=== PATIENT | female | born 1950 | race Caucasian/White ===

== ENCOUNTER 2016-11-27 10:47 | Inpatient (IN) | payer MEDICARE, OTHER ==
[2016-11-22 14:45] LABS: BASOPHILS 0.5 %; BASOPHILS ABSOLUTE 0.04 10/3/uL (0.0-0.16); EOSINOPHILS 2.4 %; EOSINOPHILS ABSOLUTE 0.21 10/3/uL (0.0-0.53); HEMATOCRIT 39.1 % (36.0-48.0); HEMOGLOBIN 12.9 g/dL (12.0-16.0); IMMATURE GRANULOCYTES 0.3 %; IMMATURE GRANULOCYTES ABSOLUTE 0.03 10/3/uL (0.0-0.11); LYMPHOCYTES 25.9 %; LYMPHOCYTES ABSOLUTE 2.26 10/3/uL (0.67-4.30); MEAN CORPUSCULAR HEMOGLOB 29.6 pg (26.0-34.0); MEAN CORPUSCULAR VOLUME 89.7 fL (80-100); MEAN PLATELET VOLUME 10.1 fL (9.2-13.0); MONOCYTES 9.3 %; MONOCYTES ABSOLUTE 0.81 10/3/uL (0.21-1.20); NEUTROPHILS 61.6 %; NEUTROPHILS ABSOLUTE 5.37 10/3/uL (2.02-8.40); PLATELET COUNT 304 10/3/uL (150-400); RBC DISTRIBUTION WIDTH 13.4 % (12.0-16.0); RED CELL COUNT 4.36 10/6/uL (4.0-5.6); WHITE BLOOD CELLS 8.7 10/3/uL (4.5-10.5)
[2016-11-22 14:46] LABS: MANUAL DIFF NO %
[2016-11-22 14:49] LABS: PARTIAL THROMBO TIME 28.4 SEC (22.5-37.2); PROTIME (NOT ORD) 13.1 SEC (12.0-14.5)
[2016-11-22 14:57] LABS: A/G RATIO 1.1 (0.7-1.9); ALBUMIN 3.9 G/DL (3.5-5.0); ALKALINE PHOSPHATASE 87 U/L (45-117); BUN (BLOOD UREA NITROGEN) 20 MG/DL (6-23); CALCIUM, SERUM 8.9 MG/DL (8.5-10.4); CHLORIDE, SERUM 104 MMOL/L (96-112); CO2 (CARBON DIOXIDE) 29 MMOL/L (24-34); CREATININE 0.76 MG/DL (0.55-1.02); GFR AFRICAN AMERICAN 95 ML/MIN (>=60); GFR NON AFRICAN AMERICAN 82 ML/MIN (>=60); GLOBULIN 3.6 G/DL (2.5-4.1); GLUCOSE, SERUM 96 MG/DL (60-99); POTASSIUM, SERUM 3.2 MMOL/L (3.5-5.3); SGOT(AST) 26 U/L (5-40); SGPT(ALT) 26 U/L (5-65); SODIUM, SERUM 143 MMOL/L (135-148); TOTAL BILIRUBIN 1.7 MG/DL (0-1.2); TOTAL PROTEIN 7.5 G/DL (6.0-8.5)
[2016-11-22 16:37] LABS: ASCORBIC ACID (UR NOT ORDER) 40 (NEG); BILIRUBIN, URINE NEGATIVE (NEG); KETONE, URINE NEGATIVE (NEG); LEUKOCYTE ESTERASE(NOT OR SMALL (NEG); WBC (NOT ORDERED) (RFLEX) 48 (0-5)
--- NOTE | ~2016-11-27 | HP ---
History And Physical [id number] [place]. [address] NAME: ELAN RUTH : 52 STATUS : ADM IN [facility]#: [id number] AGE: 66 ADM/REG DATE : 11/27/16 MR#: [id number] REPORT SERV DATE: 11/27/16 DICTATED BY: JOEY LIMON III DATE: 11/27/16 REPORT STATUS : Draft TRANSCRIBED BY: MODLuis DATE: 11/27/16 DATE OF ADMISSION: 11/27/2016 CHIEF COMPLAINT: Left knee pain. HISTORY: The patient is a 66-year-old white female who complains of pain in the left knee and has so for the past several years. It has gotten worse in the last six months to the point where she is having difficulty ambulating short distances. Complained of rest pain and night pain, all unrelieved with nonsteroidal antiinflammatory medicines. X-rays reveal advanced osteoarthritis of her left knee with [id number] deformity in the lateral compartment. She is admitted for a left total knee arthroplasty. She has had a right total knee arthroplasty by myself in January of 2008 with a nice result. Risks, benefits, and expected outcomes have been explained, but not limited to blood clots, infection, neurovascular injuries, patella maltracking problems, and component failures. PAST MEDICAL HISTORY: Significant for high blood pressure and asthma. Otherwise, she denies any liver, lung, or kidney problems. PREVIOUS SURGERIES: Include an ear surgery, right knee replacement surgery with an OA, bunionectomy, carpal tunnel release, hysterectomy. MEDICATIONS: Include losartan, Cozaar, hydrochlorothiazide, hydrocodone. ALLERGIES: NONE. SOCIAL HISTORY: Nonsmoker and nondrinker, but history of smoker. PHYSICAL EXAMINATION: GENERAL: She is alert and oriented x3. VITAL SIGNS: Stable. HEENT: Normocephalic, atraumatic. Pupils equal, round, and reactive to light and accommodation. Extraocular muscles are intact. NECK: Supple. CHEST: Clear. HEART: Regular rhythm. No murmur. ABDOMEN: Soft, nontender. Positive bowel sounds. ORTHOPEDIC EXAMINATION: Reveals marked tenderness to her right knee. She has painful range of motion with about 10 degrees of recurvatum, limited to about 115 degrees of flexion. Very tender to the lateral joint line and lateral femoral condyle. No effusion, no erythema, no warmth, but positive crepitation. Minimal tenderness to the patellofemoral joint. 1+ valgus stress, 1+ varus stress. IMAGING: X-ray of the left knee reveals advanced osteoarthritis of left knee with valgus alignment. History And Physical [address] [address] NAME: ELAN RUTH : 52 STATUS : ADM IN [facility]#: [id number] AGE: 66 ADM/REG DATE : 11/27/16 MR#: [id number] REPORT SERV DATE: 11/27/16 DICTATED BY: JOEY LIMON III DATE: 11/27/16 REPORT STATUS : Draft TRANSCRIBED BY: RONNELL DATE: 11/27/16 PLAN: Admission for left total knee arthroplasty. BRANNON/RONNELL Joey Limon III, M.D. / [id number] CC: Joey Limon III, M.D.
--- NOTE | ~2016-11-27 | OP ---
Record Of Operation [facility] [address] [place]. [address] NAME: ELAN RUTH : 52 STATUS : ADM IN PAT#: [id number] AGE: 66 ADM/REG DATE : 11/27/16 MR#: [id number] REPORT SERV DATE: 11/27/16 DICTATED BY: JOEY LIMON III DATE: 11/27/16 REPORT STATUS : Draft TRANSCRIBED BY: MODL DATE: 11/27/16 DATE OF PROCEDURE: 11/27/2016 PREOPERATIVE DIAGNOSIS: Advanced osteoarthritis, left knee (valgus deformity). POSTOPERATIVE DIAGNOSIS: Advanced osteoarthritis, left knee (valgus deformity). SURGICAL PROCEDURE PERFORMED: Left total knee arthroplasty using the [employer] system with a size 5 femoral component; size 5 tibial tray; a +5 polyethylene insert; and a 35 mm patella, posterior stabilized design. SURGEON: Joey Limon M.D. SWEAT BAND SEPARATOR: Fredi Nova. ANESTHESIA: General. ANTIBIOTICS: Ancef 2 g and gentamicin 80 mg. TOURNIQUET TIME: 34 minutes. CRYSTALLOID: 1000 mL. ESTIMATED BLOOD LOSS: 50 mL. DRAINS: None. Tranexamic acid 2 g. COMPLICATIONS: None. PROCEDURE IN DETAIL: The patient was brought to the operative room, placed on the table in supine position and general anesthesia was induced. 2 g was administered intravenously in the preop holding area. In addition, 80 mg of gentamicin was administered at the end of the case. Pneumatic tourniquet was applied to the left upper thigh and the left lower extremity was prepped and draped in the usual sterile fashion. After identifying the correct leg and performing a time-out, the left leg was exsanguinated with a 6-inch Esmarch, and tourniquet was inflated to 350 mmHg. Assuring anesthesia, a standard midline incision was made directly over the left knee followed by medial arthrotomy. The patella was everted, and the knee was flexed to 90 degrees. Medial and lateral menisci were debrided along the anterior cruciate ligament. A 5 mm step drill was used to enter the femoral canal and the intramedullary guide was placed on 5 degrees valgus for a left knee. This was pinned to the distal femur and the intramedullary guide was removed. The distal femoral cut was made with the oscillating saw removing 9 mm of distal femur. Distal femur was trialed to a size 5 femoral component, marked along the epicondylar axis. Multi-cutting guide was placed in these cesar, pinned to the distal femur, and the anterior and posterior cuts were made along Record Of Operation [facility] [address] [place]. [address] NAME: ELAN RUTH : 52 STATUS : ADM IN PAT#: [id number] AGE: 66 ADM/REG DATE : 11/27/16 MR#: [id number] REPORT SERV DATE: 11/27/16 DICTATED BY: JOEY LIMON III DATE: 11/27/16 REPORT STATUS : Draft TRANSCRIBED BY: MODLuis DATE: 11/27/16 the angled chamfer cuts. The intercondylar cutting guide was next centered and pinned to the distal femur. A reciprocating saw was used to make this cut with the posterior stabilized system. Trial reduction was carried out noting good cuts in all planes. Attention was turned towards the tibial side. The external tibial cutting guide was aligned with the second metatarsal ray and pinned to the proximal tibia. Oscillating saw was used to make this cut with a neutral degree cutting block. Trial reduction was carried out with a size 5 tibial baseplate and a +5 polyethylene insert. Full extension was achieved. Nice flexion to 130 degrees. Flexion and extension gaps were symmetrical. The undersurface of the patella was then resurfaced by transecting 9 to 10 mm of bone. A 35 mm patellar template was used to place 3 anchor holes in the undersurface of patella. Two packs of methylmethacrylate were then vacuum mixed, pressurized into the good dry cancellous bone. The real components were placed. The real size 5 polyethylene insert was locked into the tibial tray. 90 mL of the Marcaine solution was injected into the wound for postoperative pain control. Tourniquet was released after 34 minutes. Bleeding was controlled with Bovie electrocautery. Thorough irrigation was carried out throughout the procedure with pulse lavage system. No drains were used. The medial arthrotomy was closed with #2 Ethibond suture and #1 Vicryl suture in 90 degree flexed position. Subcutaneous tissue was closed with 2-0 Vicryl and the skin was closed using running 4-0 Monocryl. Benzoin and Steri- Strips were applied, followed by an Aquacel dressing. The patient tolerated the procedure well and brought to recovery room in satisfactory condition. There were no intraoperative, postoperative, or anesthetic complications. All instrument, needle, sponge, and lap counts were correct. BRANNON/RONNELL Joey Limon III, M.D. / [id number] CC: Joey Limon III, M.D.
[~2016-11-27 10:47] MED LIST: COZAAR100 MG PO; HYDROCHLOROT25 MG PO; NEUR300 PO; NORCO1 TA2 PO
[2016-11-28 05:04] LABS: HEMOGLOBIN 11.2 g/dL (12.0-16.0)
[2016-11-28 05:08] LABS: HEMATOCRIT 34.1 % (36.0-48.0)
[2016-11-29 05:59] LABS: HEMOGLOBIN 11.5 g/dL (12.0-16.0)
[2016-11-29] MEDS ORDERED: ELIQUIS 2.5 MG2.5 MG PO (11:26)
[2016-11-29] MEDS ORDERED: PERCOCET 10/3251 TAB PO (11:26)
== END 2016-11-29 14:10 | disposition home or self-care (01) | DRG 470 ==
LOC: SDC/OF 10:47 → PACU 15:12 → 3JRC 17:27
PROVIDERS: Orthopaedic Surgery
PROC: 3E0T3CZ (ICD-10-PCS; 2016-11-27)
PROC: 0SRD0J9 Replacement of Left Knee Joint with Synthetic Substitute, Cemented, Open Approach (ICD-10-PCS; principal; 2016-11-27 12:30)
DX: M17.12 Unilateral primary osteoarthritis, left knee (principal); I10 Essential (primary) hypertension; J45.909 Unspecified asthma, uncomplicated; Z96.651 Presence of right artificial knee joint; Z90.710 Acquired absence of both cervix and uterus; Z98.890 Other specified postprocedural states; Z79.899 Other long term (current) drug therapy; Z87.891 Personal history of nicotine dependence
CPT/HCPCS: 71020; 80053; 81001; 85014; 85018; 85025; 85610; 85730; 87077; 87086; 87186; 87641; 88305; 88311; 93005; 97110-GP; 97116-GP; 97161-GP; 97165-GO; A9270-GY; C1776; G8987-CJ-GO; G8988-CJ-GO; G8989-CJ-GO; J0690; J1170; J1580; J1885; J2250; J2270; J2274; J2405; J2710; J2795; J3010